=== PATIENT | male | born 1990 | race Asian ===

== ENCOUNTER 2017-08-09 23:42 | Emergency (ER) | payer OTHER ==
[~2017-08-09] VITALS: Ht 182.9 cm; Wt 80.6 kg
[2017-08-09 23:44] VITALS: TEMP 36.8; Ht 182.9 cm; Wt 80.6 kg
[2017-08-10] MEDS ORDERED: ACETAMINOPHEN 500 MG TAB PO STA
[2017-08-10] MEDS ORDERED: IBUPROFEN 600 MG TAB PO STA
[2017-08-10 00:54] VITALS: BP 115/77; PULSE 81; O2SAT 96
--- NOTE | 2017-08-10 06:29 | EMERGENCY ROOM VISIT NOTE ---
ED Visit Note First contact with patient: 23:49 CHIEF COMPLAINT: Sore throat HISTORY OF PRESENT ILLNESS: This 27-year-old male patient presents to the emergency department complaining of increasing pain in the throat for the past 1 day, gradual in onset, worse with swallowing. They rate the pain as sharp and 7/10. They are able to swallow. The patient has not had a fever. No rash. Denies any posterior neck pain or stiffness. No difficulty breathing. Symptoms came on gradually. There has been no chest pain, no abdominal pain, no nausea or vomiting. Patient denies any cough, rhinorrhea, congestion, or ear pain. The patient has taken nothing for their symptoms. REVIEW OF SYSTEMS: A 6 system review of systems was completed with pertinent positives and negatives in the HPI. ALLERGIES: Penicillin MEDICATIONS: No chronic medication PMH: Otherwise healthy SOCIAL HISTORY: Lives locally PHYSICAL EXAM: Vital Signs: Reviewed Nurse's notes. GENERAL: male, in no acute distress, non toxic in appearance, well developed, well nourished. MENTAL STATUS: Alert and oriented to person place and time. SKIN: Clear and dry, no eruptions, or rashes. No cyanosis, no petechiae. EARS: External auditory canals clear, tympanic membrane pearly muller without erythema or effusion bilaterally. EYES: Pupils equal round and reactive to light and accommodation. Conjunctivae without injection, sclerae without icterus. Extraocular movements intact. NOSE: Patent, turbinates inflammed with no discharge. No sinus tenderness. MOUTH: Mucous membranes moist. Tonsils are 1+ enlarged and with mild erythema but no exudate. The Pharynx is inflamed and slightly swollen. Pharynx without postnasal drip. Uvula is midline and no abscess is seen. NECK: Supple without nuchal rigidity. Anterior cervical lymphadenopathy without posterior cervical, or auricular, or submandibular lymphadenopathy. HEART: Regular rate and rhythm without murmurs gallops or rubs. LUNGS: Clear to auscultation bilaterally without wheezes, rales or rhonchi. ABDOMEN: Positive bowel sounds x 4. Normal tympanic percussion. Soft, nontender, without masses or organomegaly. ED COURSE: I examined the patient. He appears to have a sore throat and is not taking anything [id number] for his symptoms. He was given ibuprofen and Tylenol here in the department. A rapid strep test was negative. A backup culture was sent. The patient was instructed on the plan below and was discharged home in good condition. Current/Historical Medications No Active Prescriptions or Reported Meds Allergies Coded Allergies: Penicillins (Verified Allergy, Unknown, HAPPENED WHEN 5 YRS OLD, 08/09/17) Vital Signs Date Time Temp Pulse Resp B/P (MAP) Pulse Ox O2 Delivery O2 Flow Rate FiO2 08/10/17 00:54 81 16 115/77 96 Room Air 08/09/17 23:45 98 Room Air 08/09/17 23:44 36.8 88 18 127/75 98 Room Air Medications Administered Medications (Trade) Dose Ordered Sig/Emir Route Start Time Stop Time Status Last Admin Dose Admin Acetaminophen (Tylenol Tab) 1,000 mg NOW STAT PO 08/10/17 00:00 08/10/17 00:01 DC 08/10/17 00:08 1,000 MG Ibuprofen (Motrin Tab) 600 mg NOW STAT PO 08/10/17 00:00 08/10/17 00:01 DC 08/10/17 00:09 600 MG Departure Information Impression Primary Impression: Sore throat Dispostion Home / Self-Care Condition GOOD Prescriptions No Active Prescriptions or Reported Meds Forms HOME CARE DOCUMENTATION FORM, IMPORTANT VISIT INFORMATION Patient Instructions [facility] Additional Instructions You were seen and evaluated today on an emergency basis only. This is not a substitute for, or an effort to provide, complete comprehensive medical care. It is not possible to recognize and treat all injuries or illnesses in a single emergency department visit. For this reason it is recommended that you followup with [facility] this week for recheck. For baseline pain relief you may alternate ibuprofen and acetaminophen every 4 hours for pain control. Take 600 mg ibuprofen (Advil) and then 4 hours later take 1000 mg acetaminophen (Tylenol). Do not take more than 3000 mg acetaminophen in a single day. Drink plenty of fluids and remain well-hydrated You are welcome to return to the emergency department anytime with new, worsening, or concerning symptoms.
== END 2017-08-10 01:08 | disposition home or self-care (01) ==
LOC: C.EDB 23:43 → C.EDA 08-10 01:08
DX: J02.9 Acute pharyngitis, unspecified (principal); Z88.0 Allergy status to penicillin